=== PATIENT | female | born 1985 | race Caucasian/White ===

== ENCOUNTER → 2017-07-25 07:06 | Outpatient (CLI) | payer BC | END | disposition home or self-care (01) | LOC: D.MRI 07:06 → D.MAMMO 11:00 | DX: N94.6 Dysmenorrhea, unspecified (principal); M25.511 Pain in right shoulder; N60.02 Solitary cyst of left breast ==

== ENCOUNTER 2019-01-21 05:00 | Day surgery (SDC) | payer BC ==
[2019-01-17 10:18] LABS: BASOPHILS 0.1 % (0-2); EOSINOPHILS 1.4 % (0-7); HEMATOCRIT 33.2 % (36.0-48.0); HEMOGLOBIN 10.9 g/dL (12-16); IMMATURE GRANULOCYTES 0.1 % (0-5); LYMPHOCYTES 36.2 % (15-50); MCH 26.9 pg (26.0-34.0); MCHC 32.8 g/dL (31.0-37.0); MEAN PLATELET VOLUME 10.2 fL (7.4-10.4); MONOCYTES 4.2 % (2-11); PLATELET COUNT 304 10x3/uL (130-400); RBC 4.05 10x6/uL (4.00-5.40); RDW 13.7 % (11.5-14.5); WBC 7.2 10x3/uL (4.8-10.8)
[2019-01-17 10:25] LABS: CALC OSMOLALITY 281 mosm/kg (275-300); CALCIUM 8.6 mg/dL (8.5-10.1); CARBON DIOXIDE 27.9 mmol/L (21.0-32.0); CHLORIDE - SERUM 105 mmol/L (98-107); CREATININE - SERUM 0.8 mg/dL (0.6-1.3); GLUCOSE 95 mg/dL (74-106); POTASSIUM - SERUM 4.1 mmol/L (3.5-5.1); SODIUM 142 mmol/L (136-145); UREA NITROGEN 10 mg/dL (7-18); eGFR NON AFRICAN AMERICAN 86 mL/min (90-120)
[~2019-01-21] VITALS: Ht 149.9 cm; Wt 90.9 kg
[2019-01-21 05:49] VITALS: BP 138/81; BMI 46.1
[2019-01-21 06:02] LABS: HCG URINE NEGATIVE (NEGATIVE)
--- NOTE | 2019-01-21 09:56 | NUR ---
DEFLATED 9CC OF FLUID FROM GAN BALLOON AND REMOVED GAN CATHETER PER VERBAL ORDER FROM . CATHETER TIP FULLY INTACT. PT DENIES ANY PAIN.
[2019-01-21 10:43] VITALS: BP 152/88; Ht 149.9 cm; Wt 90.9 kg
[2019-01-21 12:23] VITALS: BP 145/84
--- NOTE | 2019-01-21 13:08 | OP ---
PATIENT NAME: YAEL RIOS MEDICAL RECORD: [id number] :83 LOCATION:D. [id number] ADMISSION DATE: SURGEON: LEE EVANS MD DATE OF OPERATION: 01/21/2019 PREOPERATIVE DIAGNOSES: 1. Dysfunctional uterine bleeding. 2. Dysmenorrhea. POSTOPERATIVE DIAGNOSES: 1. Dysfunctional uterine bleeding. 2. Dysmenorrhea. PROCEDURE: 1. Diagnostic laparoscopy. 2. Laparoscopic subtotal hysterectomy. 3. Bilateral salpingectomy. 4. Mini laparotomy. SURGEON: Lee Evans MD BUILDING RIGGER: Dr. Nagel SET UP WORKER: Mode Knight ANESTHESIOLOGIST: Dr. Cruz ANESTHETIC: General. FINDINGS: Enlarged uterus with multiple fibroids. Both tubes and ovaries were unremarkable. What was visualized of the abdominal anatomy was also unremarkable. SPECIMENS REMOVED: 1. Uterus without cervix. 2. Bilateral tubes. SPECIMEN DISPOSITION: Pathology. ESTIMATED BLOOD LOSS: Less than or equal to 75 cc. FLUIDS: 1300 cc lactated Ringer's. URINE OUTPUT: 500 cc of clear urine. COMPLICATIONS: None. DRAIN: Colin to gravity, discontinued in the PACU. INDICATIONS: The patient is a 33-year-old female with undesired fertility and heavy vaginal bleeding. The patient does not have a known history of fibroids. The patient understands risk and benefits of a subtotal hysterectomy and wishes to proceed. DESCRIPTION OF PROCEDURE: After informed consent was assured, the patient was OPERATIVE REPORT [id number] YAEL RIOS taken to the operating room where anesthetic was obtained and she was supine on the table. The patient was now prepped and draped. An incision was made at the umbilicus to accommodate a 5-mm trocar, which was inserted without difficulty. Pneumoperitoneum was developed and the patient was placed in Trendelenburg position. Accessory ports were placed in the right and left lower quadrants. Right lower quadrant port is a 10-12 port and left lower quadrant is a 5-mm port. Through the right hand port, a coagulation cutter was now inserted. Using the Thunderbeat, the tube was removed from its attachments to the adnexa and the dissection was carried over the uteroovarian ligament and round ligaments. The anterior leaf of the broad ligament was opened and the bladder flap was developed in the midline. Posterior leaf was dissected free of the vascular bundle of the right side, which was compressed, coagulated, and at the level of the internal os. This was repeated on the contralateral side. With a grasper coming in from the right and pulling the uterus to the midline, the coagulation cutter was used to free the left tube. Uterine ovarian ligaments and round ligaments were now compressed, coagulated, and . The bladder flap was now completely developed to the midline and the posterior leaf dissected free of the vascular bundle of the left side. The left vascular bundle was compressed, coagulated, and and the uterus was now removed from its attachment of the cervix. The dissection begins on the left and concludes on the right. Midline incision was now made and an Aidan retractor inserted. The uterus was brought to this incision and myomectomy performed to collapse the uterus to fit through the small incision. Once this had been performed, the pelvis was irrigated and irrigant removed. The fascia was closed with running Vicryl stitch. Subcutaneous tissues were irrigated, bleeding vessels cauterized, and the skin was reapproximated with subcuticular stitch. Reestablishment of the pneumoperitoneum revealed adequate hemostasis. The fluid contained within the cul-de-sac was suctioned and Moose, then Interceed was placed over the cervical stump. Sponge, lap, and needle counts correct times 2. The pneumoperitoneum was released and accessory trocars were removed under direct visualization. Primary trocar was now removed and all sites closed with a subcuticular stitch. Dermabond was applied to the incisions. Sponge, lap, needle counts were correct times 2 at the close of the procedure. TRANSINT:[id number] Voice Confirmation ID: [id number] DOCUMENT ID: [id number] LEE EVANS MD at 1308 CC: [id number] DICTATION DATE: 01/21/19932 YARD SPECIALIST: 01/21/19 1121 [address] [facility] [address] [place] [address]
[2019-01-21] MEDS ORDERED: PERCOCET 7.5/321 TAB PO (16:19)
[2019-01-21] MEDS ORDERED: IBUPROFEN800 MG PO (16:21)
--- NOTE | 2019-01-21 17:32 | NUR ---
PATIENT ABLE TO TOLERATE DIET WELL, PAIN CONTROLED WITH PO MEDICAITIONS, AND PATIENT VOIDED 450ML. IV REMOVED WITH NO REDNESS OR EDEMA AT SITE. DISCHARGE INSTRUCTIONS GIVEN WITH PATIENT VOICING UNDERSTANDING. PATIENT TAKEN BY WHEELCHAIR TO PRIVATE CAR, TO DRIVE HOME
== END 2019-01-21 17:36 | disposition home or self-care (01) ==
LOC: D.PAN 05:00 → D.OPS 07:30 → D.M3 10:16 → D.PAN 17:36
PROVIDERS: ATTEND Obstetrics & Gynecology
DX: N93.8 Other specified abnormal uterine and vaginal bleeding (principal); N94.6 Dysmenorrhea, unspecified; D25.9 Leiomyoma of uterus, unspecified